=== PATIENT | female | born 1990 | race Hispanic/Latino ===

== ENCOUNTER 2018-08-19 09:27 | Emergency (ER) | payer OTHER ==
[2018-08-19 09:32] VITALS: BP 152/104; PULSE 108; RESP 17; TEMP 99.1; O2SAT 98; BMI 21.2
--- NOTE | 2018-08-19 10:02 | ED PDOC ---
Lower Extremity Pain/Injury Time Seen by Provider: 08/19/18 09:32 Chief Complaint (Nursing): Lower Extremity Problem/Injury Chief Complaint (Provider): right ankle pain History Per: Patient History/Exam Limitations: no limitations Onset/Duration Of Symptoms: Hrs (last night) Current Symptoms Are (Timing): Still Present Additional Complaint(s): Alejandra Singleton is a 28 year old female, with no significant past medical history, who presents to the emergency department complaining of right ankle pain after she slipped and fell on stairs last night. Patient states she sustained an inversion injury to right ankle and is currently unable to bear weight due to pain. She denies any weakness, numbness or other possible injuries. No further medical complaints. PMD: Clinic - Ankle/Foot Description Of Injury: Fell (slipped) Currently Unable To: Bear Weight Past Medical History Reviewed: Historical Data, Nursing Documentation, Vital Signs Vital Signs: Last Vital Signs Temp 99.1 F 08/19/18 09:30 Pulse 108 H 08/19/18 09:30 Resp 17 08/19/18 09:30 BP 152/104 H 08/19/18 09:30 Pulse Ox 98 08/19/18 09:30 - Medical History PMH: No Chronic Diseases - Surgical History Surgical History: No Surg Hx - Family History Family History: States: Unknown Family Hx - Social History Current smoker - smoking cessation education provided: No Alcohol: Social Drugs: Denies - Home Medications Home Medications: Ambulatory Orders Medication Instructions Recorded Naproxen [Naprosyn] 500 mg PO Q12H #20 tab 08/19/18 - Allergies Allergies/Adverse Reactions: Allergies Allergy/AdvReac Type Severity Reaction Status Date / Time No Known Allergies Allergy Verified 08/19/18 09:36 Review of Systems ROS Statement: Except As Marked, All Systems Reviewed And Found Negative Musculoskeletal: Positive for: Foot Pain (right ankle) Neurological: Negative for: Weakness, Numbness Physical Exam - Reviewed Nursing Documentation Reviewed: Yes Vital Signs Reviewed: Yes - Physical Exam Appears: Positive for: No Acute Distress Head Exam: Positive for: ATRAUMATIC, NORMAL INSPECTION, NORMOCEPHALIC Skin: Positive for: Normal Color, Warm, Dry Eye Exam: Positive for: Normal appearance, EOMI, PERRL Neck: Positive for: Normal, Painless ROM Pulses-Post. Tibialis (L): 2+ Pulses-Post. Tibialis (R): 2+ Extremity: Positive for: Tenderness (Right lower lateral malleolus), Swelling (right lower lateral malleolus), Other (PT pulse 2/4. No motor/sensory deficits). Negative for: Normal ROM (Right ankle ROM limited by pain), Deformity Neurologic/Psych: Positive for: Alert, Oriented. Negative for: Motor/Sensory Deficits - ECG O2 Sat by Pulse Oximetry: 98 (RA) Pulse Ox Interpretation: Normal Medical Decision Making Medical Decision Making: Time: 09:32 Initial Impression: Right ankle sprain r/o fracture Initial Plan: --Ankle right 3 views routine [RAD] --Foot right 3 views routine [RAD] --Reevaluation Scribe Attestation: Documented by Rodolfo Ford, acting as a scribe for Quincy Walsh MD Provider Scribe Attestation: All medical record entries made by the Scribe were at my direction and personally dictated by me. I have reviewed the chart and agree that the record accurately reflects my personal performance of the history, physical exam, me dical decision making, and the department course for this patient. I have also personally directed, reviewed, and agree with the discharge instructions and disposition. Disposition - Clinical Impression Clinical Impression: Ankle sprain - Patient ED Disposition Is Patient to be Admitted: No - Disposition Referrals: Kash Venegas DPM [Staff Provider] - Disposition: Routine/Home Disposition Time: 10:51 Condition: FAIR Prescriptions: Naproxen [Naprosyn] 500 mg PO Q12H #20 tab Instructions: Ankle Sprain Forms: [employer] (Gambian)
--- NOTE | 2018-08-19 10:53 | RAD ---
Date of service: 08/19/2018 PROCEDURE: Right Foot Radiographs. HISTORY: trauma COMPARISON: None. FINDINGS: BONES: No acute fracture or destructive bony lesion identified. JOINTS: Normal. SOFT TISSUES: Normal. OTHER FINDINGS: None. IMPRESSION: Unremarkable right foot radiographs.
--- NOTE | 2018-08-19 10:54 | RAD ---
Date of service: 08/19/2018 PROCEDURE: Right Ankle Radiographs. HISTORY: trauma COMPARISON: None available. FINDINGS: BONES: No acute fracture or destructive bony lesion identified. JOINTS: Normal. No osteoarthritis. Ankle mortise maintained. Talar dome intact SOFT TISSUES: Prominent lateral malleolar soft tissue edema identified extending anteriorly and posteriorly mildly. OTHER FINDINGS: None. IMPRESSION: Soft tissue edema. No acute fracture, subluxation or dislocation right ankle.
--- NOTE | 2018-08-19 13:58 | CP.PCM.CON ---
History of Present Illness - History of Present Illness History of Present Illness: Podiatry consult note for Dr. Venegas, 28 year old female, with no significant past medical history presented to the emergency department complaining of right ankle pain after she slipped and fell on stairs last night. Patient states she sustained an inversion injury to right ankle and is currently unable to bear weight due to pain. Patient states she took OTC pain medication, which provided mild relief. She denies any weakness, numbness or other possible injuries. No further medical complaints. Patient states she takes public transportation to work daily, however, will be going to stay with her parents while the injury improves PMHx: none PSHx: none Allergies: non Review of Systems - Review of Systems All systems: reviewed and no additional remarkable complaints except Review of Systems: As per HPI Past Patient History - Past Social History Alcohol: Social Drugs: Denies - PSYCHIATRIC Hx Substance Use: No - SURGICAL HISTORY Hx Surgeries: No - ANESTHESIA Hx Anesthesia: No Meds Home Medications: Home Medication List Medication Instructions Recorded Confirmed Type Naproxen [Naprosyn] 500 mg PO Q12H #20 tab 08/19/18 Rx Allergies/Adverse Reactions: Allergies Allergy/AdvReac Type Severity Reaction Status Date / Time No Known Allergies Allergy Verified 08/19/18 09:36 Physical Exam - Constitutional Appears: Well, Non-toxic, No Acute Distress - Head Exam Head Exam: ATRAUMATIC, NORMOCEPHALIC - Extremities Exam Additional comments: Bilateral Lower Extremity Exam VASC: DP and PT 2/4 bilaterally, CFT less than 3 seconds x 10, TG within normal limits, positive moderate edema tot he right ankle NEURO: grossly intact DERM: no erythema, no ecchymosis, no open wounds, no signs of infection ORTHO: pain on palpation to the lateral aspect of the ankle, pain with ankle range of motion, patient guarding due to pain - Neurological Exam Neurological exam: Alert, Oriented x3 - Psychiatric Exam Psychiatric exam: Normal Affect, Normal Mood Results - Vital Signs Recent Vital Signs: Last Vital Signs Temp 99.1 F 08/19/18 09:30 Pulse 108 H 08/19/18 09:30 Resp 17 08/19/18 09:30 BP 152/104 H 08/19/18 09:30 Pulse Ox 98 08/19/18 10:51 Assessment & Plan - Assessment and Plan (Free Text) Assessment: 28 y/o female seen for right ankle injury Plan: =Patient seen and evaluated Plan discussed with Dr. Theo DELGADO, afebrile Foot and Ankle X-rays: fractures, dislocations Patient explained likely etiology to be ligamentous/soft tissue Patient placed in a posterior splint, to remain NWB with use of crutches Patient taught how to use crutches Patient to ice/elevate extremity Patient will follow up within 1 week wiht a doctor in [place] Patient provided with note for work to remain NWB - Date & Time Date: 08/20/18 Time: 10:13
== END 2018-08-19 12:30 | disposition home or self-care (01) ==
LOC: H.ER 09:27
DX: S93.401A Sprain of unspecified ligament of right ankle, initial encounter (principal); W10.9XXA Fall (on) (from) unspecified stairs and steps, initial encounter; Y92.89 Other specified places as the place of occurrence of the external cause